=== PATIENT | female | born 1960 | race Caucasian/White ===

== ENCOUNTER 2024-08-04 11:12 | Emergency (ER) | payer OTHER ==
[~2024-08-04] VITALS: Ht 160 cm; Wt 104.3 kg
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
[2024-08-04] MEDS ORDERED: DICL20GE TP (13:48)
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
[2024-08-04 14:25] VITALS: BP 145/83; PULSE 75; RESP 16; TEMP 98.2; O2SAT 96
== END 2024-08-04 14:27 | disposition home or self-care (01) ==
LOC: EDH 11:12
DX: S80.02XA Contusion of left knee, initial encounter (principal); E11.9 Type 2 diabetes mellitus without complications; E78.00 Pure hypercholesterolemia, unspecified; I10 Essential (primary) hypertension; Z90.49 Acquired absence of other specified parts of digestive tract; X58.XXXA Exposure to other specified factors, initial encounter; Y93.89 Activity, other specified; Y92.89 Other specified places as the place of occurrence of the external cause; Y99.8 Other external cause status
CPT/HCPCS: 73564; 99283